=== PATIENT | female | born 2000 | race Caucasian/White ===

== ENCOUNTER 2018-11-24 09:52 | Emergency (ER) | payer MEDICAID ==
[~2018-11-24] VITALS: Ht 154.9 cm; Wt 57.1 kg
[2018-11-24 09:58] VITALS: Ht 154.9 cm; Wt 57.1 kg
[2018-11-24] MEDS ORDERED: SOD CHLORIDE 0.9% 1,000 ML IV STA (10:12)
[2018-11-24] MEDS ORDERED: ONDANSETRON 4 MG INJ IV STA (10:12)
[2018-11-24] MEDS ORDERED: KETOROLAC 30 MG INJ IV STA (10:12)
[2018-11-24] MEDS ORDERED: IOHEXOL 300MG/ML 150 ML BTL ONE (12:18)
[2018-11-24] MEDS ORDERED: SOD CHLORIDE 0.9% 100 ML ONE (12:18)
[2018-11-24] MEDS ORDERED: FAMO-96 PO (13:26)
[2018-11-24] MEDS ORDERED: ACET500C5 PO (13:26)
--- NOTE | 2018-11-24 14:17 | ERD ---
ER Documentation Chief Complaint Chief Complaint pt is bib family with c/o abd pain, nausea, not eating for a few weeks HPI 18-year-old female presenting with abdominal pain and nausea for a few weeks. Patient states she has generalized abdominal pain. No vomiting. LNMP last week. Denies any change in urination or vomit. Denies medical problems. NKDA. Surgical history denies. Social history denies. ROS All systems reviewed and are negative except as per history of present illness. Medications Home Meds Active Scripts Famotidine* (Pepcid*) 20 Mg Tablet, 20 MG PO BID for 4 Days, #30 TAB Prov:ALISSA WEISS PA-C 11/24/18 Acetaminophen* (Tylophen*) 500 Mg Capsule, 1 CAP PO Q6H PRN for PAIN AND OR ELEVATED TEMP, #20 CAP Prov:ALISSA WEISS PA-C 11/24/18 Allergies Allergies: Coded Allergies: No Known Allergy (Unverified , 11/24/18) PMhx/Soc History of Surgery: No Anesthesia Reaction: No Hx Neurological Disorder: No Hx Respiratory Disorders: No Hx Cardiac Disorders: No Hx Psychiatric Problems: No Hx Miscellaneous Medical Probl: No Hx Alcohol Use: No Hx Substance Use: No Hx Tobacco Use: No Smoking Status: Never smoker FmHx Family History: No diabetes, No coronary disease, No other Physical Exam Vitals Vital Signs Date Temp Pulse Resp B/P (MAP) Pulse Ox O2 O2 Flow FiO2 Time Delivery Rate 11/24/18 99.0 80 18 126/78 98 09:58 (94) Physical Exam GENERAL: The patient is well-appearing, well-nourished, in no acute distress HEENT: Atraumatic. Conjunctivae are pink. Pupils equal, round, and reactive to light. There is no scleral icterus. Tympanic membranes clear bilaterally. Oropharynx clear. No nystagmus or photophobia. NECK: C-spine is soft and supple. There is no meningismus. There is no cervical lymphadenopathy. CHEST: Clear to auscultation bilaterally. There are no rales, wheezes or rhonchi. HEART: Regular rate and rhythm. No murmurs, clicks, rubs or gallops. . ABDOMEN: Active bowel sounds. No distention. No organomegaly. Generalized abdominal pain with palpation. Result Diagram: 11/24/18 1030 11/24/18 1030 Results 24 hrs Laboratory Tests Test 11/24/18 10:24 11/24/18 10:30 POC Beta HCG, Qualitative NEGATIVE White Blood Count 6.6 10^3/ul Red Blood Count 4.73 10^6/ul Hemoglobin 15.2 g/dl Hematocrit 44.3 % Mean Corpuscular Volume 93.7 fl Mean Corpuscular Hemoglobin 32.1 pg Mean Corpuscular Hemoglobin Concent 34.3 g/dl Red Cell Distribution Width 11.6 % Platelet Count 273 10^3/UL Mean Platelet Volume 10.3 fl Immature Granulocytes % 0.300 % Neutrophils % 65.7 % Lymphocytes % 24.9 % Monocytes % 6.5 % Eosinophils % 2.1 % Basophils % 0.5 % Nucleated Red Blood Cells % 0.0 /100WBC Immature Granulocytes # 0.020 10^3/ul Neutrophils # 4.4 10^3/ul Lymphocytes # 1.7 10^3/ul Monocytes # 0.4 10^3/ul Eosinophils # 0.1 10^3/ul Basophils # 0.0 10^3/ul Nucleated Red Blood Cells # 0.0 10^3/ul Urine Color YELLOW Urine Clarity SLIGHTLY CLOUDY Urine pH 5.0 Urine Specific [place] 1.024 Urine Ketones NEGATIVE mg/dL Urine Nitrite NEGATIVE mg/dL Urine Bilirubin NEGATIVE mg/dL Urine Urobilinogen NEGATIVE mg/dL Urine Leukocyte Esterase 1+ [place]/ul Urine Microscopic RBC 1 /HPF Urine Microscopic WBC 5 /HPF Urine Squamous Epithelial Cells MODERATE /HPF Urine Hemoglobin NEGATIVE mg/dL Urine Glucose NEGATIVE mg/dL Urine Total Protein NEGATIVE mg/dl Sodium Level 142 mmol/L Potassium Level 4.4 mmol/L Chloride Level 105 mmol/L Carbon Dioxide Level 26 mmol/L Anion Gap 11 Blood Urea Nitrogen 12 mg/dl Creatinine 0.70 mg/dl Est Glomerular Filtrat Rate mL/min > 60 mL/min Glucose Level 95 mg/dl Calcium Level 9.7 mg/dl Total Bilirubin 0.5 mg/dl Direct Bilirubin 0.00 mg/dl Indirect Bilirubin 0.5 mg/dl Aspartate Amino Transf (AST/SGOT) 23 IU/L Alanine Aminotransferase (ALT/SGPT) 26 IU/L Alkaline Phosphatase 77 IU/L Total Protein 7.6 g/dl Albumin 4.6 g/dl Globulin 3.00 g/dl Albumin/Globulin Ratio 1.53 Lipase 50 U/L Current Medications Medications Dose Sig/Chen Start Time Status Last (Trade) Ordered Route PRN Stop Time Admin Dose Reason Admin Sodium 1,000 ml @ Q1H STAT 11/24/18 DC 11/24/18 Chloride 1,000 mls/hr IV 10:12 11/24/18 10:58 11:11 Ondansetron 4 mg ONCE STAT 11/24/18 DC 11/24/18 HCl (Zofran IV 10:12 11/24/18 10:58 Inj) 10:15 Ketorolac 30 mg ONCE STAT 11/24/18 DC 11/24/18 Tromethamine IV 10:12 11/24/18 10:58 (Toradol) 10:15 Sodium 100 ml @ ud STK-MED 11/24/18 DC Chloride ONCE .ROUTE 12:18 11/24/18 12:19 Iohexol 150 ml STK-MED 11/24/18 DC (Omnipaque ONCE .ROUTE 12:11/24/18 300mg/ ml) 12:19 Procedures/MDM DIAGNOSTIC IMAGING REPORT Patient: JUANI JACKSON : 2000 Age: 18 Sex: F MR #: [id number] DOS: 11/24/18 1012 Ordering MD: ABBI WEISS PA-C Location: [facility] Room/Bed: PROCEDURE: CT ABDOMEN AND PELVIS WITH IV CONTRAST. CLINICAL INDICATION: Abdominal pain TECHNIQUE: CT scan of the abdomen and pelvis with contrast was performed on a multidetector high-resolution CT scanner following the use of IV contrast. 80 cc Omnipaque-300 was administered. Coronal and sagittal reformatted images were obtained from the axial source images. Images were reviewed on a high-resolution PACS workstation. The total exam CTDI equals 7.4 mGy and the total exam DLP equals 398.6 mGy-cm. One or more of the following dose reduction techniques were used: Automated exposure control. Adjustment of the mA and/or kV according to patient size. Use of iterative reconstruction technique. DICOM images are available. COMPARISON: None FINDINGS: CT abdomen: The lung bases are clear. The heart size is within normal limits. There is no significant pericardial effusion. Hepatic morphology is within normal limits. No gross contour deforming masses. The gallbladder is within normal limits. No evidence of intrahepatic or extrahepatic biliary dilatation. The spleen and pancreas are within normal limits. Both adrenal glands are within normal limits. Both kidneys are in normal anatomic position. No evidence of obstruction or hydronephrosis. No gross renal/ureteric calculi. The visualized GI tract demonstrate normal caliber loops of small and large bowel. No evidence of bowel obstruction. The appendix is not clearly identified. The aorta is unremarkable. No significant retroperitoneal lymphadenopathy. CT pelvis: The bladder is within normal limits. The uterus is retroverted, with small am ount of fluid within the endometrial canal. Free fluid is noted within the pelvis. Fluid is noted within the endometrial canal. The visualized osseous structures, appears to be within normal limits. IMPRESSION: 1. No evidence of acute intra-abdominal/pelvic inflammatory process. No evidence of bowel obstruction. The appendix is not clearly identified, however no inflammatory changes within the right lower quadrant. 2. Small amount nonspecific free fluid in the pelvis. 3. Otherwise unremarkable CT scan of the abdomen/pelvis. DIAGNOSTIC IMAGING REPORT Patient: JUANI JACKSON : 2000 Age: 18 Sex: F MR #: [id number] DOS: 11/24/18 1012 Ordering MD: ABBI WEISS PA-C Location: [facility] Room/Bed: PROCEDURE: US Pelvis. CLINICAL INDICATION: pelvic pain TECHNIQUE: Multiple sonographic images of the pelvis were obtained utilizing transabdominal and endovaginal technique. The images were reviewed on a PACS workstation. COMPARISON: None. FINDINGS: The uterus is normal in size with a normal appearance of the myometrium. The uterus measures 6.0 x 4.1 x 5.2 cm. The endometrial stripe is homogeneous in appearance and has the thickness of 5 mm. The ovaries are normal in size and echogenicity. Normal Doppler flow is identified in both ovaries. The right ovary measures 3.4 x 1.7 x 2.0 cm. The left ovary measures 3.4 x 2.1 x 1.9 cm. No free fluid is present within the pelvis. RPTAT: AA IMPRESSION: Unremarkable pelvic ultrasound. MDM: 18-year-old female presenting with abdominal pain. Patient's blood work is within normal limits. Imaging is within normal limits. I have low suspicion for acute abdominal emergency. I have low suspicion for urinary tract infection. Patient is discharged stricter precautions and told to follow-up with primary care within 1-2 days for close evaluation. Patient is told symptoms change or worsen to return immediately to the ER. All questions answered at discharge Departure Diagnosis: Primary Impression: Abdominal pain Condition: Stable Patient Instructions: Abdominal Pain Referrals: [facility] YOU HAVE RECEIVED A MEDICAL SCREENING EXAM AND THE RESULTS INDICATE THAT YOU DO NOT HAVE A CONDITION THAT REQUIRES URGENT TREATMENT IN THE EMERGENCY DEPARTMENT. FURTHER EVALUATION AND TREATMENT OF YOUR CONDITION CAN WAIT UNTIL YOU ARE SEEN IN YOUR DOCTORS OFFICE WITHIN THE NEXT 1-2 DAYS. IT IS YOUR RESPONSIBILITY TO MAKE AN APPOINTMENT FOR FOLOW-UP CARE. IF YOU HAVE A PRIMARY DOCTOR --you should call your primary doctor and schedule an appointment IF YOU DO NOT HAVE A PRIMARY DOCTOR YOU CAN CALL OUR PHYSICIAN REFERRAL HOTLINE AT IF YOU CAN NOT AFFORD TO SEE A PHYSICIAN YOU CAN CHOSE FROM THE FOLLOWING [facility] CL[facility] [address] [facility] [facility] [address] [facility] [facility] [address] [facility] [address] [facility] [facility] [address] [facility]. [facility]. [address] Additional Instructions: FOLLOW UP WITH YOUR PRIMARY CARE PHYSICIAN TOMORROW.Return to this facility if you are not improving as expected. ALISSA WEISS PA-C Nov 24, 2018 14:17
== END 2018-11-24 13:40 | disposition home or self-care (01) ==
LOC: FTE 09:52
DX: R10.84 Generalized abdominal pain (principal); R10.2 Pelvic and perineal pain
CPT/HCPCS: 74177; 76830; 76856; 80053; 81001; 81025; 83690; 85025; J1885; J2405; J7030; Q9967; Z7610; 36415; 96374; 96375

== ENCOUNTER 2019-06-06 20:05 | Emergency (ER) | payer MEDICAID ==
[~2019-06-06] VITALS: Ht 154.9 cm; Wt 54.7 kg
[~2019-06-06 20:05] MED LIST: ACET500C5 PO; FAMO-96 PO; IBUP-1542 PO; NORE1TAB12 PO
[2019-06-06 20:10] VITALS: Ht 154.9 cm; Wt 54.7 kg
[2019-06-06] MEDS ORDERED: KETOROLAC 30 MG INJ IV STA (21:10)
[2019-06-06] MEDS ORDERED: FAMOTIDINE 20 MG INJ IV STA (21:10)
[2019-06-06] MEDS ORDERED: SOD CHLORIDE 0.9% 100 ML ONE (22:02)
[2019-06-06] MEDS ORDERED: IOHEXOL 300MG/ML 150 ML BTL ONE (22:02)
[2019-06-06 23:12] VITALS: BP 112/80; PULSE 74; RESP 20
== END 2019-06-06 23:14 | disposition home or self-care (01) ==
LOC: FTE 20:05
DX: R10.2 Pelvic and perineal pain (principal)
CPT/HCPCS: 36415; 74177; 80053; 81001; 81025; 83690; 85025; 96374; 96375; J1885; Q9967; Z7502; Z7610; 81003